=== PATIENT | female | born 2005 | race Caucasian/White ===

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

== ENCOUNTER 2023-06-28 14:02 | Emergency (ER) | payer MEDICAID, SELFPAY ==
--- NOTE | ~2023-06-28 | US_ITS ---
EXAMINATION: US OBSTETRICAL ULTRASOUND CLINICAL INFORMATION: Right lower quadrant pain COMPARISON: None available. LMP: 05/03/2023. Gestational age by maternal dates is 8 weeks 0 days. Estimated date of delivery by maternal dates is 02/07/2024. TECHNIQUE: Transabdominal pelvic imaging was performed. FINDINGS: There is a single intrauterine gestational sac with visible yolk sac, embryo/fetus, and cardiac activity. There is no significant subchorionic hemorrhage or hematoma. HR: 160 beats per minute. CRL (crown rump length): 1.42 cm (7 weeks and 6 days +/- 4 days). MADELEINE (estimated date of delivery): 02/08/2024. +/- 4 days. MATERNAL ADNEXA: The right maternal ovary measures 2.8 x 1.5 x 1.8 cm. It appears unremarkable The left maternal ovary measures 2.2 x 0.9 x 1.2 cm cm. It appears unremarkable There is no significant maternal adnexal mass. No maternal pelvic ascites. US/US OB <= 14 weeks fetus IMPRESSION: 1. Single intrauterine gestation with ultrasound gestational age of 7 weeks and 6 days +/- 4 days. 2. Estimated date of delivery is 02/08/2024 +/- 4 days. 3. No maternal adnexal mass or pelvic ascites.
--- NOTE | ~2023-06-28 | US_ITS ---
EXAMINATION: Appendix ultrasound CLINICAL INFORMATION: Right lower quadrant pain COMPARISON: None. TECHNIQUE: Grayscale and color imaging of the right lower quadrant linear transducer. FINDINGS: The appendix is not seen. No ascites. No abnormal loops of bowel. US/US appendix IMPRESSION: Appendix not seen by ultrasound.
[2023-06-28 14:58] VITALS: BP 101/53; PULSE 85; RESP 18; TEMP 36.6; O2SAT 98; BMI 22.7
[2023-06-28 19:47] LABS: MANUAL DIFF FLAG NO
[2023-06-28 19:50] LABS: Basophils Percent Auto 0.2 % (0-2); Eosinophils Percent Auto 0.2 % (0-4); Hematocrit 33.3 % (37.0-47.0); Hemoglobin 11.1 g/dl (12.0-16.0); Imm Gran Abs Auto 0.02 X10*3/uL (0.00-0.03); Imm Gran Pct Auto 0.2 % (0.0-0.4); Lymphocytes Absolute Auto 0.8 X10*3/uL (1.2-4.9); Lymphocytes Percent Auto 8.3 % (20-40); Mean Corpuscular HGB Conc 33.3 g/dl (31.0-35.0); Mean Corpuscular Hemoglobin 27.1 pg (27.0-33.0); Mean Corpuscular Volume 81.4 fL (80.0-98.0); Monocytes Absolute Auto 0.4 X10*3/uL (0.1-1.2); Monocytes Percent Auto 3.9 % (2-11); Neutrophils Absolute Auto 8.3 x10*3/uL (2.0-8.3); Neutrophils Percent Auto 87.2 % (45-73); Platelet Count 303 X10*3/uL (160-400); Red Blood Count 4.09 X10*6/uL (4.20-5.50); Red Cell Distribution Width 15.3 % (11.0-16.0); White Blood Count 9.5 X10*3/uL (4.8-10.8)
[2023-06-28 20:03] LABS: Alanine Aminotransferase 8 U/L (0-31); Albumin Level 3.9 g/dL (3.5-5.0); Alkaline Phosphatase 53 U/L (39-117); Anion Gap 11 (12-20); Aspartate Amino Transferase 13 U/L (5-31); Bilirubin Total 0.4 mg/dL (0.0-1.0); Blood Urea Nitrogen 10 mg/dL (9-16); Calcium 8.8 mg/dL (8.4-10.2); Carbon Dioxide 22 mmol/L (22-29); Chloride 105 mmol/L (96-108); Creatinine Clr Calc Pharmacy 116.7; Estimated Glomerular Filt Rate > 60; Glucose Random 88 mg/dL (60-115); Lipase 21 U/L (8-78); Potassium 3.3 mmol/L (3.3-5.1); Sodium 135 mmol/L (135-145); Total Protein 7.5 g/dL (6.5-8.0)
[2023-06-28] MEDS: ondansetron HCL 4 MG/2 ML VIAL IVPUSH (20:21)
[2023-06-28] MEDS: Acetaminophen 325 MG TABLET 650 MG PO (20:21)
[2023-06-28] MEDS: 0.9 % Sodium Chloride 1,000 ML 999 ML IV (20:22)
[2023-06-28 20:29] VITALS: BP 104/57; PULSE 71; RESP 18; TEMP 36.8; O2SAT 99
[2023-06-28 20:29] LABS: UPreg QC Valid YES; Urine Pregnancy POSITIVE (NEGATIVE)
[2023-06-28 20:30] LABS: Appearance Urine Cloudy; Color Urine Yellow; Glucose Urine UA Negative (Negative); Leukocyte Esterase Urine Negative (Negative); Nitrite Urine Negative (Negative); Specific Gravity - Urine >= 1.030 (1.005-1.025); Urine Blood Negative (Negative); Urine Ketones 40 mg/dL (Negative); Urine Protein Trace mg/dL (Neg-Trace)
--- NOTE | 2023-06-28 21:21 | ED_ITS ---
HPI - General Adult General Chief complaint: Nausea/Vomiting/Diarrhea Stated complaint: Vomiting Time Seen by Provider: 06/28/23 19:57 Source: patient, RN notes reviewed and old records reviewed Mode of arrival: ambulatory Limitations: no limitations History of Present Illness HPI narrative: 18-year-old female presents for evaluation of lower abdominal pain and vomiting Patient woke up at 3:00 a.m. this morning with multiple episodes of vomiting. She reports pain to her right lower abdomen which is ?04/18. ? Denies any vaginal bleeding or discharge per Denies any burning with urination Patient states that she had a positive home test on June 09 but has not yet followed up with OBGYN, she does not know how far along she could be Denies any history abdominal surgery Related Data Previous Rx's Medication Instructions Recorded vitamin with calcium 1 tab PO DAILY 90 days #90 tabs 07/21/21 no.72-iron 27 mg-folic acid 1 mg tablet ( Vitamins Plus Low Iron) clotrimazole 1 % vaginal cream 1 appful vaginal BEDTIME #45 grams 01/05/22 ferrous sulfate 325 mg (65 mg 325 mg PO DAILY #30 tabs 01/27/22 iron) tablet metronidazole 500 mg tablet 500 mg PO BID 7 days #14 tabs 01/27/22 cephalexin 500 mg capsule 500 mg PO Q8H 7 days #21 caps 06/23/22 ondansetron 4 mg disintegrating 4 mg PO Q8H prn nausea 5 days #15 06/23/22 tablet tabs vitamins no.144-folic 1 tab PO DAILY #30 tabs 06/28/23 acid 400 mcg chewable tablet () Allergies Allergy/AdvReac Type Severity Reaction Status Date / Time No Known Allergies Allergy Verified 06/28/23 14:58 [No Known Allergies*] Review of Systems 2 Constitutional: Constitutional: Denies chills and Denies fever(s) Eyes: Eyes: Denies blurry vision Cardiovascular: Cardiovascular: Denies chest pain and Denies dyspnea Respiratory: Respiratory: Denies cough and Denies dyspnea Gastrointestinal: Gastrointestinal: Reports abdominal pain, Reports nausea and Reports vomiting Genitourinary: Genitourinary: Denies abnormal vaginal bleeding, Denies difficulty voiding and Denies dysuria Musculoskeletal: Musculoskeletal: Reports back pain PMFSH Past Medical History Medical History Anxiety Chlamydia Surgical History No history of previous surgery Family History Family History Paternal Grandfather Cancer of neck Social History Social History Household Members: Family Housing: Apartment Are you a primary health care analyst to a significant other at home: No Do you presently have visiting nurse or other home services: No Alcohol intake: never Patient Tobacco Use Status: Never used Tobacco Smoked in Last 30 Days: No Use of substances other than those prescribed or required for medical reasons: No Agree to transfusion: Yes Advance Directives: No Advance Directives Information Provided: No Patient : Yes service: No Current occupational status: employed Current occupation: warehouse shipper Current occupational exposures/hazards: No Gender identity: Female Cognitive needs: No Hearing needs: No Vision needs: No Physical Exam ED Vital Signs: Vital Signs - 24 hr 06/28/23 14:58 06/28/23 20:29 Temperature 98 F 98.3 F Pulse Rate 85 71 Respiratory Rate 18 18 Blood Pressure 101/53 L 104/57 L Pulse Oximetry 98 99 Oxygen Delivery Method Room Air Room Air BMI result Body Mass Index 22.7 Const General: healthy appearing, comfortable, no acute distress, alert and awake Nutritional Appearance: well nourished Orientation/consciousness: patient oriented x3 HENMT Head: Yes normocephalic and Yes atraumatic Eyes Eyelids: Yes eyelids normal Conjunctivae: conjunctivae normal Sclerae: sclerae normal Corneas: corneas normal Pupils: Equal, round and reactive pupils present EOM: EOMs intact bilaterally Neck Neck: Yes full ROM Resp Effort & Inspection: normal respiratory effort, able to speak in complete sentences and not labored Cardio Rate: regular rate Rhythm: regular rhythm GI Inspection: No distended Palpation (GI): Soft to palpation, not firm, Tenderness to palpation present (GI) in the RLQ and at McBurney's point; obturator sign negative, psoas sign negative, with no rebound tenderness and Rovsing's sign negative, no guarding and not rigid Skin General skin exam: elasticity normal Neuro General: patient oriented x3 Cranial nerves: Yes Equal, round and reactive pupils present and Yes Bilaterally intact EOM present Cognition (Neuro): normal cognition Extrem Other: Moving all extremities well without any obvious deformities Course Reevaluation(s) Reevaluation #1: Patient re-evaluated, she reports feeling better. Her ultrasound shows a single intrauterine gestation with 7 weeks 6 days estimated gestation. Ultrasound appendix was unable to visualize the appendix but did not see any evidence of periappendiceal thickening or inflammation changes. Her pain is likely related to a viral vomiting or vomiting related . This was discussed with the patient, she is working and getting follow-up for OBGYN at [facility]. Time: 22:21 Medications Administered Discontinued Medications Generic Name Dose Route Start Last Admin Trade Name Freq PRN Reason Stop Dose Admin Acetaminophen 650 mg 06/28/23 20:10 06/28/23 20:21 Acetaminophen 325 Mg Tablet PO 06/28/23 20:11 650 mg ONCE ONE Administration Sodium Chloride 1,000 mls @ 999 mls/hr 06/28/23 20:15 06/28/23 21:50 Ns IV 06/28/23 21:15 Infused .Q1H1M RON Infusion Ondansetron HCl 4 mg 06/28/23 20:07 06/28/23 20:21 Ondansetron Hcl 4 Mg/2 Ml Vial IVPUSH 06/28/23 20:08 4 mg ONCE ONE Administration Medical Decision Making Medical Decision Making [facility] Narrative: 18-year-old female presents for evaluation of right lower abdominal/pelvic pain. She reports that she is with a positive HCG in the urine. I added on a serum HCG quantitative level. She is tender in the right lower quadrant and does have GI symptoms. Will attempt to get ultrasound of the appendix as well as ultrasound to rule out ectopic . Labs otherwise reassuring, the patient appears quite comfortable. Differential Diagnosis Differential Diagnoses: The differential diagnosis associated with the presentation includes Gastroenteritis Abdominal pain Vomiting Ectopic Acute appendicitis Lab Data [facility] Lab Attestation statement: I reviewed the patient's lab results. No significant leukocytosis. The patient has a mild anemia hemoglobin 11.1 hematocrit 33.3. This is consistent with her recent baseline and is a normocytic anemia. No significant electrolyte abnormalities. 06/28/23 19:39 06/28/23 19:39 Labs: Lab Results 06/28/23 06/28/23 Range/Units 19:39 20:11 WBC 9.5 (4.8-10.8) X10*3/uL RBC 4.09 L (4.20-5.50) X10*6/uL Hgb 11.1 L (12.0-16.0) g/dl Hct 33.3 L (37.0-47.0) % MCV 81.4 (80.0-98.0) fL MCH 27.1 (27.0-33.0) pg MCHC 33.3 (31.0-35.0) g/dl RDW 15.3 (11.0-16.0) % Plt Count 303 (160-400) X10*3/uL MPV 10.0 (9.4-12.3) fL Immature Gran % (Auto) 0.2 (0.0-0.4) % Neut % (Auto) 87.2 H (45-73) % Lymph % (Auto) 8.3 L (20-40) % [place] % (Auto) 3.9 (2-11) % Eos % (Auto) 0.2 (0-4) % Baso % (Auto) 0.2 (0-2) % Lymph # (Auto) 0.8 L (1.2-4.9) X10*3/uL [place] # (Auto) 0.4 (0.1-1.2) X10*3/uL Eos # (Auto) 0.0 (0.0-0.4) X10*3/uL Baso # (Auto) 0.0 (0.0-0.2) X10*3/uL Abs Immat Gran (auto) 0.02 (0.00-0.03) X10*3/uL Absolute Neuts (auto) 8.3 (2.0-8.3) x10*3/uL Absolute Nucleated RBC 0.000 (0.0-0.012) X10*3/uL Nucleated RBC % (auto) 0.0 (0.0-0.2) /100WBC Sodium 135 (135-145) mmol/L Potassium 3.3 (3.3-5.1) mmol/L Chloride 105 (96-108) mmol/L Carbon Dioxide 22 (22-29) mmol/L Anion Gap 11 L (12-20) BUN 10 (9-16) mg/dL Creatinine 0.58 (0.5-1.4) mg/dL Estim Creat Clear Calc 116.7 Estimated GFR > 60 Random Glucose 88 (60-115) mg/dL Calcium 8.8 (8.4-10.2) mg/dL Total Bilirubin 0.4 (0.0-1.0) mg/dL AST 13 (5-31) U/L ALT 8 (0-31) U/L Alkaline Phosphatase 53 (39-117) U/L Total Protein 7.5 (6.5-8.0) g/dL Albumin 3.9 (3.5-5.0) g/dL Lipase 21 (8-78) U/L Beta HCG, Quant 073260 mIU/mL Urine Color Yellow Urine Appearance Cloudy Urine pH 7.0 (5.0-9.0) Ur Specific [place] >= 1.030 H (1.005-1.025) Urine Protein Trace (Neg-Trace) mg/dL Urine Glucose (UA) Negative (Negative) mg/dL Urine Ketones 40 (Negative) mg/dL Urine Blood Negative (Negative) Urine Nitrite Negative (Negative) Ur Leukocyte Esterase Negative (Negative) Urine Test POSITIVE H (NEGATIVE) Discharge Plan Discharge Clinical Impression: Abdominal pain, , Vomiting Patient Disposition: Home, Self-Care Instructions: (ED) Additional Instructions: I recommend that you take vitamins daily. Use Tylenol as needed for pain. You should not use any ibuprofen Follow-up with OBGYN as discussed Return for new or worsening symptoms Prescriptions: New 400 mcg tablet,chewable 1 tab PO DAILY Qty: 30 0RF No Action Vitamin Plus Low Iron 27 mg iron- 1 mg tablet 1 tab PO DAILY 90 Days Qty: 90 3RF cephalexin 500 mg capsule 500 mg PO Q8H 7 Days Qty: 21 0RF ondansetron 4 mg tablet,disintegrating 4 mg PO Q8H 5 Days Qty: 15 0RF clotrimazole 1 % cream 1 appful vaginal BEDTIME Qty: 45 2RF ferrous sulfate 325 mg (65 mg iron) tablet 325 mg PO DAILY Qty: 30 5RF metronidazole 500 mg tablet 500 mg PO BID 7 Days Qty: 14 0RF Rx Instructions: Take with food, Avoid alcohol and vinegar products
[2023-06-28 22:44] VITALS: BP 97/45; PULSE 63; RESP 14; O2SAT 100
== END 2023-06-28 22:49 | disposition home or self-care (01) ==
PROVIDERS: Physician Assistant; Emergency Provider Student in an Organized Health Care Education/Training Program
DX: R11.2 Nausea with vomiting, unspecified (principal); R10.30 Lower abdominal pain, unspecified; Z79.899 Other long term (current) drug therapy
CPT/HCPCS: 36415; 76705; 76801; 80053; 81003; 81025; 83690; 84702; 85025; 96361; 96374; 99284; J2405